=== PATIENT | male | born 1965 | race Hispanic/Latino ===

== ENCOUNTER 2023-01-10 07:19 | Day surgery (SDC) | payer BC ==
[2023-01-07 15:24] LABS: BASOPHILS % (AUTO) 0.4 % (0.0-5.0); EOSINOPHILS % (AUTO) 4.2 % (0.0-8.0); HEMATOCRIT 50.9 % (42-54); LYMPHOCYTES % (AUTO) 20.5 % (21.0-51.0); MEAN CORPUSCULAR HEMOGLOBIN 28.2 pg (27.0-33.0); MEAN CORPUSCULAR HGB CONC 33.6 g/dL (32.0-36.0); MONOCYTES % (AUTO) 8.5 % (3.0-13.0); PLATELET COUNT (AUTO) 259 K/uL (130-400); RED BLOOD CELL COUNT(AUTO) 6.06 MIL/uL (4.50-6.20); RED CELL DISTRIBUTION WIDTH 12.6 % (11.0-15.5); WHITE BLOOD COUNT (AUTO) 7.9 K/uL (4.8-10.8)
[2023-01-07 15:33] LABS: CARBON DIOXIDE 30 mmol/L (21-32); CHLORIDE 104 mmol/L (101-111); CREATININE 0.8 mg/dL (0.5-1.5); GLOMERULAR FILTR. RATE CALC 102 mL/min (>90); GLUCOSE,RANDOM 97 mg/dL (70-105); POTASSIUM 4.2 mmol/L (3.5-5.1); SODIUM SERUM 144 mmol/L (136-145); UREA NITROGEN, BLOOD 21 mg/dL (7-18)
[2023-01-07 15:34] LABS: CRP QUANTITATIVE < 2.00 mg/L (0.00-9.0)
[2023-01-07 15:56] VITALS: BP 169/91
[2023-01-10] VITALS (17 sets, daily range): BP systolic 118–159; BP diastolic 56–83
[~2023-01-10] VITALS: Ht 172.7 cm; Wt 94.9 kg
[~2023-01-10 07:19] MED LIST: CLINDAMYCIN IVPB 900MG/50ML 50 ML IV SCH; FENO145T26 PO; LOSA25TA41 PO
[2023-01-10] MEDS ORDERED: LACTATED RINGERS 1000ML 1,000 ML IV ONE (10:01)
[2023-01-10] MEDS ORDERED: SUCCINYLCHOLINE CHLORIDE 20 MG/ML 10 ML VIAL ONE (11:38)
[2023-01-10] MEDS ORDERED: LIDOCAINE PF 100MG/5ML (2%) SYRINGE 5ML ONE (11:39)
[2023-01-10] MEDS ORDERED: NEOSTIGMINE 5MG/5ML SYR IV ONE (11:39)
[2023-01-10] MEDS ORDERED: MIDAZOLAM HCL 1 MG/ML 2ML VIAL ONE (11:39)
[2023-01-10] MEDS ORDERED: PROPOFOL 10 MG/ML 20ML VIAL IV ONE (11:39)
[2023-01-10] MEDS ORDERED: GLYCOPYRROLATE 1 MG/5 ML SYRINGE ONE (11:39)
[2023-01-10] MEDS ORDERED: ROCURONIUM 10MG/1ML SYR 10 MG/ML ML ONE (11:39)
[2023-01-10] MEDS ORDERED: ONDANSETRON 4MG INJ ONE (11:39)
[2023-01-10] MEDS ORDERED: FENTANYL CITRATE PF 50 MCG/1 ML 2ML VIAL ONE (11:40)
[2023-01-10] MEDS ORDERED: MEPERIDINE-PF 25 MG/ML SYG ONE (12:14)
[2023-01-10] MEDS: BUPIVACAINE/PF 0.5% 30ML VIAL ONE ×2 (12:20→12:31)
[2023-01-10] MEDS ORDERED: ACET-2079 PO (12:56)
== END 2023-01-10 14:40 | disposition home or self-care (01) ==
LOC: DAH 07:19
PROVIDERS: ATTEND Student in an Organized Health Care Education/Training Program
DX: M65.341 Trigger finger, right ring finger (principal); M65.342 Trigger finger, left ring finger; M79.641 Pain in right hand; M79.642 Pain in left hand; I10 Essential (primary) hypertension; E66.9 Obesity, unspecified; Z88.0 Allergy status to penicillin; Z88.2 Allergy status to sulfonamides; Z72.89 Other problems related to lifestyle; Z79.899 Other long term (current) drug therapy; Z20.822 Contact with and (suspected) exposure to COVID-19; Z68.31 Body mass index [BMI] 31.0-31.9, adult
CPT/HCPCS: 82040; 80048; 85025; 84134; 86140; 87426; 36415; 26055 ×2; A4663; J7120; J3010; J3490 ×3; J2710; J0330; J2001; J2250; J2704; J2405; J2175; A6223; A4649 ×2; A4930; A4215; A4223; A4222; A4221